=== PATIENT | male | born 1970 | race African-American/Black ===

== ENCOUNTER 2020-07-12 23:49 | Emergency (ER) | payer MEDICAID ==
[~2020-07-12] VITALS: Ht 167.6 cm; Wt 114.0 kg
[2020-07-13] MEDS ORDERED: KETOROLAC 60MG/2ML VIAL IM ONE (00:30)
[2020-07-13 02:25] VITALS: BP 111/73
[2020-07-13] MEDS ORDERED: IBUP-2029 MT (02:43)
== END 2020-07-13 03:34 | disposition home or self-care (01) ==
LOC: ER 23:49
DX: G89.29 Other chronic pain (principal); Z91.14 Patient's other noncompliance with medication regimen; I11.0 Hypertensive heart disease with heart failure; J44.9 Chronic obstructive pulmonary disease, unspecified; F17.290 Nicotine dependence, other tobacco product, uncomplicated; F12.10 Cannabis abuse, uncomplicated
CPT/HCPCS: 96372; 99283; C1893; J1885

== ENCOUNTER 2020-07-15 01:22 | Inpatient (IN) | payer MEDICAID ==
[~2020-07-15] VITALS: Ht 182.9 cm; Wt 121.6 kg
[~2020-07-15 01:22] MED LIST: IBUP-2029 MT
[2020-07-15] MEDS ORDERED: MORPHINE SULFATE 4 MG/ML CPJ (NOT FOR IM USE) IV STA (01:50)
[2020-07-15] MEDS ORDERED: ONDANSETRON HCL 4MG/2ML INJ IV STA (01:50)
[2020-07-15] MEDS ORDERED: LIDOCAINE HCL/EPINEPHRINE 1%-EPI 1:100,000 10 ML VIAL IJ ONE (02:00)
[2020-07-15] MEDS ORDERED: TETANUS, DIPHTHERIA, PERTUSSIS VAC/PF 0.5ML (>7YR OLD) IM ONE (02:00)
[2020-07-15] MEDS ORDERED: BACITRACIN ZINC OINT UDPKT TOP ONE (02:00)
[2020-07-15] MEDS ORDERED: SODIUM CHLORIDE 0.9% 1,000 ML IV ONE (02:00)
[2020-07-15] MEDS ORDERED: LIDOCAINE HCL/EPINEPHRINE 1%-EPI 1:100,000 50 ML VIAL INFIL NR (02:45)
[2020-07-15 02:46] LABS: BASOPHILS % 0.5 % (0.0-2.0); HEMATOCRIT. 43.9 % (42.0-52.0); HEMOGLOBIN. 14.8 g/dL (14.0-18.0); MEAN CORPUSCULAR HEMOGLOBIN 33.6 pg (28.0-32.0); MEAN CORPUSCULAR VOLUME 99.9 fL (80.0-94.0); MEAN PLATELET VOLUME 7.8 fl (7.4-10.4); MONOCYTES % 11.8 % (2.0-8.0); NEUTROPHILS % 36.7 % (40.0-76.0); PLATELET 248 x1000/uL (130-400); RED CELL DISTRIBUTION WIDTH 17.2 % (11.6-14.6)
[2020-07-15 03:23] LABS: CHLORIDE 112 mEq/L (98-107)
[2020-07-15 03:37] LABS: ETHANOL BLOOD 378 mg/dL
[2020-07-15] MEDS ORDERED: IOHEXOL-300 100 ML BOTTLE IV NR (05:30)
[2020-07-15] MEDS ORDERED: ONDANSETRON HCL 4MG/2ML INJ IV PRN (12:30)
[2020-07-15] MEDS ORDERED: CLONIDINE 0.1MG TABLET PO PRN (12:30)
[2020-07-15] MEDS ORDERED: HYDROCODONE/ACETAMINOPHEN 5/325MG TABLET PO PRN (12:30)
[2020-07-15] MEDS ORDERED: DOCUSATE SODIUM 100MG CAPSULE PO PRN (12:30)
[2020-07-15] MEDS ORDERED: ACETAMINOPHEN 325MG TABLET PO PRN ×2 (12:30)
[2020-07-15 12:47] LABS: *AMPHETAMINES SCREEN URINE NEGATIVE (NEGATIVE); *BARBITURATES SCREEN URINE PRESUMTIVE POSITIVE (NEGATIVE); *BENZODIAZEPINES SCREEN URINE PRESUMTIVE POSITIVE (NEGATIVE); CANNABINOID URINE SCREEN NEGATIVE (NEGATIVE); METHADONE URINE SCREEN NEGATIVE (NEGATIVE); OPIATES URINE SCREEN PRESUMTIVE POSITIVE (NEGATIVE); PHENCYCLIDINE URINE SCREEN NEGATIVE (NEGATIVE)
[2020-07-15 12:51] LABS: *COCAINE SCREEN URINE NEGATIVE (NEGATIVE)
[2020-07-15] MEDS ORDERED: CHLORDIAZEPOXIDE 25MG CAPSULE PO SCH (14:00)
[2020-07-15] MEDS: MORPHINE SULFATE 2 MG/ML CPJ (NOT FOR IM USE) IV PRN ×2 (16:29→23:27)
[2020-07-15] MEDS: CHLORDIAZEPOXIDE 5 MG CAPSULE PO SCH (16:29)
[2020-07-15] MEDS: LORAZEPAM 2MG/ML CPJ IV PRN (17:07)
[2020-07-16 01:00] VITALS: BP_SYST 128; BP_SYST 129; BP_DIAS 78; BP_DIAS 83
[2020-07-16] MEDS: CHLORDIAZEPOXIDE 5 MG CAPSULE PO SCH ×4 (01:21→21:05)
[2020-07-16] MEDS ORDERED: L25 PO (02:52)
[2020-07-16 04:00] VITALS: BP 138/85
[2020-07-16 06:03] LABS: CHLORIDE 109 mEq/L (98-107)
[2020-07-16 06:51] LABS: BASOPHILS % 0.5 % (0.0-2.0); EOSINOPHILS % 1.5 % (0.0-5.0); HEMATOCRIT. 36.8 % (42.0-52.0); HEMOGLOBIN. 12.6 g/dL (14.0-18.0); MEAN CORPUSCULAR HEMOGLOBIN 33.9 pg (28.0-32.0); MONOCYTES % 12.4 % (2.0-8.0); NEUTROPHILS % 45.6 % (40.0-76.0); PLATELET 215 x1000/uL (130-400); RED BLOOD CELL COUNT 3.72 mill/uL (4.7-6.1); RED CELL DISTRIBUTION WIDTH 17.2 % (11.6-14.6)
[2020-07-16 08:26] VITALS: BP 131/68
[2020-07-16] MEDS: MORPHINE SULFATE 2 MG/ML CPJ (NOT FOR IM USE) IV PRN ×2 (08:32→16:59)
[2020-07-16] MEDS: LORAZEPAM 2MG/ML CPJ IV PRN (10:13)
[2020-07-16 12:04] VITALS: BP 123/68
[2020-07-16] MEDS: SODIUM CHLORIDE 0.9% 1,000 ML IV SCH ×2 (13:06→21:06)
[2020-07-16] MEDS: MULTIVITAMINS,THER W-MINERALS TABLET PO SCH (13:06)
[2020-07-16] MEDS: FOLIC ACID 1MG TABLET PO SCH (13:06)
[2020-07-16] MEDS: THIAMINE HCL 100MG TABLET PO SCH (13:06)
[2020-07-16] MEDS: LORAZEPAM 2MG/ML CPJ IV SCH ×3 (13:07→23:26)
[2020-07-16] MEDS ORDERED: MAGNESIUM 2 G PREMIX 50 ML IV SCH (14:00)
[2020-07-16 16:00] VITALS: BP 115/71
[2020-07-16 20:00] VITALS: BP 129/72
[2020-07-17] VITALS: BP 102/72
[2020-07-17] MEDS: MORPHINE SULFATE 2 MG/ML CPJ (NOT FOR IM USE) IV PRN ×4 (02:01→22:25)
[2020-07-17 04:00] VITALS: BP 133/81
[2020-07-17] MEDS: CHLORDIAZEPOXIDE 5 MG CAPSULE PO SCH ×3 (06:32→22:00)
[2020-07-17] MEDS: LORAZEPAM 2MG/ML CPJ IV SCH ×4 (06:32→23:17)
[2020-07-17 07:57] LABS: CHLORIDE 110 mEq/L (98-107)
[2020-07-17 08:00] VITALS: BP 123/75
[2020-07-17] MEDS: SODIUM CHLORIDE 0.9% 1,000 ML IV SCH ×2 (08:53→18:15)
[2020-07-17] MEDS: THIAMINE HCL 100MG TABLET PO SCH (08:59)
[2020-07-17] MEDS: FOLIC ACID 1MG TABLET PO SCH (08:59)
[2020-07-17] MEDS: MULTIVITAMINS,THER W-MINERALS TABLET PO SCH (08:59)
[2020-07-17 12:00] VITALS: BP 125/67
[2020-07-17 16:00] VITALS: BP 129/82
[2020-07-17 21:26] VITALS: BP 114/61
[2020-07-18 01:12] VITALS: BP 144/79
[2020-07-18] MEDS: SODIUM CHLORIDE 0.9% 1,000 ML IV SCH ×3 (04:16→23:37)
[2020-07-18] MEDS: MORPHINE SULFATE 2 MG/ML CPJ (NOT FOR IM USE) IV PRN ×3 (04:21→21:09)
[2020-07-18] MEDS: LORAZEPAM 2MG/ML CPJ IV SCH ×4 (05:27→23:30)
[2020-07-18 07:04] VITALS: BP 126/81
[2020-07-18] MEDS: CHLORDIAZEPOXIDE 25MG CAPSULE PO SCH ×3 (07:08→21:09)
[2020-07-18 07:52] LABS: CHLORIDE 111 mEq/L (98-107)
[2020-07-18 08:03] LABS: PHOSPHORUS 3.8 mg/dL (2.5-4.9)
[2020-07-18 08:20] VITALS: BP 122/57
[2020-07-18] MEDS: THIAMINE HCL 100MG TABLET PO SCH (09:24)
[2020-07-18] MEDS: FOLIC ACID 1MG TABLET PO SCH (09:24)
[2020-07-18] MEDS: MULTIVITAMINS,THER W-MINERALS TABLET PO SCH (09:24)
[2020-07-18 12:00] VITALS: BP 119/54
[2020-07-18 16:00] VITALS: BP 148/89
[2020-07-18 20:00] VITALS: BP 128/75
[2020-07-19] VITALS (7 sets, daily range): BP systolic 127–140; BP diastolic 62–101
[2020-07-19] MEDS: CHLORDIAZEPOXIDE 25MG CAPSULE PO SCH ×3 (05:32→22:02)
[2020-07-19] MEDS: LORAZEPAM 2MG/ML CPJ IV SCH ×3 (05:32→17:17)
[2020-07-19 07:35] LABS: BASOPHILS % 0.6 % (0.0-2.0); EOSINOPHILS % 2.5 % (0.0-5.0); HEMATOCRIT. 37.9 % (42.0-52.0); HEMOGLOBIN. 12.8 g/dL (14.0-18.0); LYMPHOCYTES % 42.7 % (20.0-50.0); MEAN CORPUSCULAR HEMOGLOBIN 34.1 pg (28.0-32.0); MEAN CORPUSCULAR VOLUME 100.8 fL (80.0-94.0); MEAN PLATELET VOLUME 8.6 fl (7.4-10.4); MONOCYTES % 11.3 % (2.0-8.0); NEUTROPHILS % 42.9 % (40.0-76.0); PLATELET 227 x1000/uL (130-400); RED BLOOD CELL COUNT 3.76 mill/uL (4.7-6.1); RED CELL DISTRIBUTION WIDTH 16.8 % (11.6-14.6)
[2020-07-19 07:40] LABS: CHLORIDE 111 mEq/L (98-107)
[2020-07-19] MEDS: MULTIVITAMINS,THER W-MINERALS TABLET PO SCH (08:31)
[2020-07-19] MEDS: THIAMINE HCL 100MG TABLET PO SCH (08:31)
[2020-07-19] MEDS: FOLIC ACID 1MG TABLET PO SCH (08:31)
[2020-07-19] MEDS: MORPHINE SULFATE 2 MG/ML CPJ (NOT FOR IM USE) IV PRN ×3 (08:32→22:00)
[2020-07-19 19:19] LABS: CLARITY URINE CLEAR (CLEAR); COLOR URINE YELLOW (YELLOW); KETONES URINE NEGATIVE (NEGATIVE); LEUKOCYTE ESTERASE URINE NEGATIVE (NEGATIVE); NITRITE URINE NEGATIVE (NEGATIVE); OCCULT BLOOD URINE NEGATIVE (NEGATIVE); PROTEIN URINE NEGATIVE (NEGATIVE); SPECIFIC GRAVITY URINE 1.012 (1.005-1.030); UROBILINOGEN URINE 0.2 E.U./dL (0.2-1.0)
[2020-07-19] MEDS: SODIUM CHLORIDE 0.9% 1,000 ML IV SCH (22:02)
[2020-07-20] VITALS: BP 115/80
[2020-07-20] MEDS: LORAZEPAM 2MG/ML CPJ IV SCH ×4 (00:23→17:44)
[2020-07-20 04:00] VITALS: BP 118/78
[2020-07-20] MEDS: MORPHINE SULFATE 2 MG/ML CPJ (NOT FOR IM USE) IV PRN ×4 (04:45→22:44)
[2020-07-20] MEDS: SODIUM CHLORIDE 0.9% 1,000 ML IV SCH ×2 (06:36→15:57)
[2020-07-20] MEDS: CHLORDIAZEPOXIDE 25MG CAPSULE PO SCH ×3 (06:37→22:26)
[2020-07-20 06:54] LABS: BASOPHILS % 0.7 % (0.0-2.0); EOSINOPHILS % 2.9 % (0.0-5.0); HEMATOCRIT. 39.9 % (42.0-52.0); HEMOGLOBIN. 13.6 g/dL (14.0-18.0); MEAN CORPUSCULAR HEMOGLOBIN 34.4 pg (28.0-32.0); MEAN CORPUSCULAR VOLUME 100.8 fL (80.0-94.0); MEAN PLATELET VOLUME 9.1 fl (7.4-10.4); MONOCYTES % 10.6 % (2.0-8.0); NEUTROPHILS % 45.8 % (40.0-76.0); PLATELET 235 x1000/uL (130-400); RED BLOOD CELL COUNT 3.96 mill/uL (4.7-6.1); RED CELL DISTRIBUTION WIDTH 17.1 % (11.6-14.6)
[2020-07-20 07:00] LABS: CHLORIDE 109 mEq/L (98-107)
[2020-07-20 08:00] VITALS: BP 138/92
[2020-07-20] MEDS: THIAMINE HCL 100MG TABLET PO SCH (09:14)
[2020-07-20] MEDS: MULTIVITAMINS,THER W-MINERALS TABLET PO SCH (09:14)
[2020-07-20] MEDS: FOLIC ACID 1MG TABLET PO SCH (09:14)
[2020-07-20 12:00] VITALS: BP 107/78
[2020-07-20 16:00] VITALS: BP 135/88
[2020-07-21] MEDS: LORAZEPAM 2MG/ML CPJ IV SCH ×3 (00:31→12:00)
[2020-07-21 04:00] VITALS: BP 142/85
[2020-07-21] MEDS: MORPHINE SULFATE 2 MG/ML CPJ (NOT FOR IM USE) IV PRN ×4 (05:26→22:40)
[2020-07-21] MEDS: CHLORDIAZEPOXIDE 25MG CAPSULE PO SCH ×3 (06:46→21:05)
[2020-07-21 07:28] LABS: CHLORIDE 111 mEq/L (98-107)
[2020-07-21 07:39] LABS: BASOPHILS % 0.4 % (0.0-2.0); EOSINOPHILS % 2.2 % (0.0-5.0); HEMATOCRIT. 38.3 % (42.0-52.0); HEMOGLOBIN. 13.1 g/dL (14.0-18.0); MEAN CORPUSCULAR VOLUME 99.3 fL (80.0-94.0); MEAN PLATELET VOLUME 8.6 fl (7.4-10.4); MONOCYTES % 11.8 % (2.0-8.0); NEUTROPHILS % 49.6 % (40.0-76.0); PLATELET 223 x1000/uL (130-400); RED BLOOD CELL COUNT 3.86 mill/uL (4.7-6.1); RED CELL DISTRIBUTION WIDTH 17.1 % (11.6-14.6)
[2020-07-21 08:00] VITALS: BP 136/80
[2020-07-21] MEDS: SODIUM CHLORIDE 0.9% 1,000 ML IV SCH ×2 (09:13→21:05)
[2020-07-21] MEDS: THIAMINE HCL 100MG TABLET PO SCH (09:14)
[2020-07-21] MEDS: FOLIC ACID 1MG TABLET PO SCH (09:14)
[2020-07-21] MEDS: MULTIVITAMINS,THER W-MINERALS TABLET PO SCH (09:22)
[2020-07-21 10:34] VITALS: BP 136/80
[2020-07-21 12:00] VITALS: BP 128/77
[2020-07-21 16:00] VITALS: BP 148/86
[2020-07-21 20:00] VITALS: BP 107/57
[2020-07-22] VITALS: BP 135/69
[2020-07-22] MEDS: MORPHINE SULFATE 2 MG/ML CPJ (NOT FOR IM USE) IV PRN ×4 (03:07→20:43)
[2020-07-22 04:00] VITALS: BP 124/62
[2020-07-22] MEDS: CHLORDIAZEPOXIDE 25MG CAPSULE PO SCH ×3 (05:30→21:04)
[2020-07-22] MEDS: SODIUM CHLORIDE 0.9% 1,000 ML IV SCH (06:52)
[2020-07-22 07:23] LABS: CHLORIDE 111 mEq/L (98-107)
[2020-07-22 07:56] LABS: BASOPHILS % 0.4 % (0.0-2.0); EOSINOPHILS % 2.4 % (0.0-5.0); HEMATOCRIT. 38.2 % (42.0-52.0); HEMOGLOBIN. 13.1 g/dL (14.0-18.0); LYMPHOCYTES % 42.6 % (20.0-50.0); MEAN CORPUSCULAR HEMOGLOBIN 34.2 pg (28.0-32.0); MEAN PLATELET VOLUME 8.6 fl (7.4-10.4); MONOCYTES % 11.1 % (2.0-8.0); NEUTROPHILS % 43.5 % (40.0-76.0); PLATELET 221 x1000/uL (130-400); RED BLOOD CELL COUNT 3.82 mill/uL (4.7-6.1)
[2020-07-22 08:00] VITALS: BP 131/86
[2020-07-22] MEDS: MULTIVITAMINS,THER W-MINERALS TABLET PO SCH (08:35)
[2020-07-22] MEDS: FOLIC ACID 1MG TABLET PO SCH (08:35)
[2020-07-22] MEDS: THIAMINE HCL 100MG TABLET PO SCH (08:35)
[2020-07-22 12:00] VITALS: BP_SYST 118; BP_SYST 121; BP_DIAS 73
[2020-07-22 16:00] VITALS: BP 112/67
[2020-07-22 20:00] VITALS: BP 133/84
[2020-07-23] VITALS: BP 119/74
[2020-07-23] MEDS: MORPHINE SULFATE 2 MG/ML CPJ (NOT FOR IM USE) IV PRN ×2 (01:11→05:51)
[2020-07-23 04:00] VITALS: BP 115/74
[2020-07-23] MEDS: SODIUM CHLORIDE 0.9% 1,000 ML IV SCH (04:02)
[2020-07-23] MEDS: CHLORDIAZEPOXIDE 25MG CAPSULE PO SCH (05:50)
[2020-07-23 08:00] VITALS: BP 104/71
[2020-07-23] MEDS: MULTIVITAMINS,THER W-MINERALS TABLET PO SCH (08:42)
[2020-07-23] MEDS: THIAMINE HCL 100MG TABLET PO SCH (08:42)
[2020-07-23] MEDS: FOLIC ACID 1MG TABLET PO SCH (08:42)
[2020-07-23] MEDS: HYDROCODONE/ACETAMINOPHEN 5/325MG TABLET PO PRN ×3 (11:39→21:52)
[2020-07-23] MEDS: LORAZEPAM 0.5MG TABLET PO PRN ×2 (11:39→23:04)
[2020-07-23 12:00] VITALS: BP 107/74
[2020-07-23 16:00] VITALS: BP 109/69
[2020-07-23 20:00] VITALS: BP 107/70
[2020-07-24] VITALS: BP 110/69
[2020-07-24] MEDS: HYDROCODONE/ACETAMINOPHEN 5/325MG TABLET PO PRN ×4 (02:27→16:13)
[2020-07-24 04:00] VITALS: BP 120/86
[2020-07-24 08:00] VITALS: BP 111/73
[2020-07-24] MEDS: THIAMINE HCL 100MG TABLET PO SCH (08:32)
[2020-07-24] MEDS: FOLIC ACID 1MG TABLET PO SCH (08:32)
[2020-07-24] MEDS: MULTIVITAMINS,THER W-MINERALS TABLET PO SCH (08:32)
[2020-07-24] MEDS: SODIUM CHLORIDE 0.9% 1,000 ML IV SCH (11:13)
[2020-07-24 12:00] VITALS: BP 127/82
[2020-07-24] MEDS ORDERED: FINASTERIDE 5MG TABLET PO SCH (12:30)
[2020-07-24] MEDS ORDERED: TAMSULOSIN HCL 0.4MG SR CAPSULE PO SCH (12:30)
[2020-07-24] MEDS ORDERED: LORAZEPAM 1MG TABLET PO PRN (12:30)
[2020-07-24] MEDS: CHLORDIAZEPOXIDE 25MG CAPSULE PO SCH ×2 (13:16→17:25)
[2020-07-24] MEDS ORDERED: THIA100T72 PO (15:46)
[2020-07-24] MEDS ORDERED: TAMS-11 PO (15:46)
[2020-07-24] MEDS ORDERED: FINA5TAB11 PO (15:46)
[2020-07-24] MEDS ORDERED: FOLI-43 PO (15:46)
[2020-07-24] MEDS ORDERED: LORA-250 PO (15:46)
[2020-07-24] MEDS ORDERED: L25 PO (15:46)
[2020-07-24 16:00] VITALS: BP 110/67
[2020-07-24 17:06] VITALS: BP 110/69
== END 2020-07-24 18:12 | DRG 775 ==
LOC: ER 01:49 → 7WST 12:24 → EDBEDREQSVC 12:36 → ENRESERV 23:27 → 5WST 07-16 08:13 → 6EST 07-19 10:52
PROVIDERS: ADMIT Internal Medicine; ATTEND Internal Medicine
DX: F10.131 Alcohol abuse with withdrawal delirium (principal); F10.129 Alcohol abuse with intoxication, unspecified; S00.03XA Contusion of scalp, initial encounter; Y90.8 Blood alcohol level of 240 mg/100 ml or more; S02.40EA Zygomatic fracture, right side, initial encounter for closed fracture; G93.40 Encephalopathy, unspecified; M87.9 Osteonecrosis, unspecified; M16.12 Unilateral primary osteoarthritis, left hip; R74.01 Elevation of levels of liver transaminase levels; J34.89 Other specified disorders of nose and nasal sinuses; F17.200 Nicotine dependence, unspecified, uncomplicated; I10 Essential (primary) hypertension; N32.0 Bladder-neck obstruction; N40.0 Benign prostatic hyperplasia without lower urinary tract symptoms; Z20.822 Contact with and (suspected) exposure to COVID-19; Z86.16 Personal history of COVID-19; W18.39XA Other fall on same level, initial encounter; Z88.8 Allergy status to other drugs, medicaments and biological substances; Z79.1 Long term (current) use of non-steroidal anti-inflammatories (NSAID); Z79.899 Other long term (current) drug therapy; Y93.89 Activity, other specified; Y92.89 Other specified places as the place of occurrence of the external cause; Y99.8 Other external cause status; R91.8 Other nonspecific abnormal finding of lung field; M84.459A Pathological fracture, hip, unspecified, initial encounter for fracture
CPT/HCPCS: 36415; 70486; 71045; 71260; 73030; 73502; 73560; 73590; 73610; 74177; 80048; 80053; 80076; 80305; 80320; 81003; 83735; 84100; 85025; 90715; 93005; 96374; 97116; 97162; 97166; 97530; 97535; 99285; J2060; J2270; J2405; J3475; J3490; J7030; Q9967; U0003; G0480